=== PATIENT | male | born 1975 | race Caucasian/White ===

== ENCOUNTER 2019-02-17 15:21 | Emergency (ER) | payer OTHER ==
[2019-02-17 15:36] VITALS: BP 121/104
--- NOTE | 2019-02-17 15:42 | UC ---
UC General HPI - HPI Summary HPI Summary: pt punched a wall 2 days ago injuring his R hand. c/o pain and swelling. - History of Current Complaint Chief Complaint: UCUpperExtremity Stated Complaint: RT HAND INJ Time Seen by Provider: 02/17/19 15:31 Hx Obtained From: Patient Timing: Constant Pain Intensity: 7 Aggravating: movement - Allergy/Home Medications Allergies/Adverse Reactions: Allergies Allergy/AdvReac Type Severity Reaction Status Date / Time No Known Allergies Allergy Verified 02/17/19 15:37 Home Medications: Home Medications ARIPiprazole TAB* [Abilify TAB*] 10 mg PO DAILY 02/17/19 [History Confirmed ] Entecavir [Baraclude] 0.5 mg PO DAILY 02/17/19 [History Confirmed 02/17/19] Multivitamin [Multivitamins] 1 each PO DAILY 02/17/19 [History Confirmed ] SUMAtriptan TAB* [Imitrex TAB*] 50 mg PO SEE INSTRUCTIONS 02/17/19 [History Confirmed 02/17/19] cloNIDine TAB* [Catapres 0.1 MG TAB*] 0.1 mg PO TID 02/17/19 [History Confirmed 02/17/19] levETIRAcetam TAB* [Keppra TAB*] 1,000 mg PO DAILY 02/17/19 [History Confirmed 02/17/19] traZODone TAB* [Desyrel TAB*] 50 mg PO BEDTIME 02/17/19 [History Confirmed 02/17] PMH/Surg Hx/FS Hx/Imm Hx - Additional Past Medical History Additional PMH: sleep disturbance, fx R 4th finger Cardiovascular History: Hypertension Neurological History: Seizures - Surgical History Surgical History: None - Family History Known Family History: Positive: Non-Contributory - Social History Alcohol Use: Weekly Substance Use Type: None Smoking Status (MU): Heavy Every Day Tobacco Smoker Review of Systems All Other Systems Reviewed And Are Negative: No Constitutional: Negative: Fever Skin: Negative: Rash Musculoskeletal: Positive: Edema - R hand plus pain Physical Exam Triage Information Reviewed: Yes Appearance: Well-Appearing Vital Signs: Initial Vital Signs Temp 98.1 F 02/17/19 15:32 Pulse 87 02/17/19 15:32 Resp 16 02/17/19 15:32 BP 121/104 02/17/19 15:32 Pulse Ox 99 02/17/19 15:32 Vital Signs Reviewed: Yes Respiratory: Positive: No respiratory distress Cardiovascular: Positive: RRR Musculoskeletal: Positive: Other: - RUE: Shoulder and elbow are non tender. wrist with mild tenderness and swelling over dorsal-ulnar side. snuff box is not tender. Dorsal hand with swelling and tender but not red or warm. fingers have gross s/v function rom limited by hand pain. Neurological: Positive: Alert Psychological: Positive: Age Appropriate Behavior Skin Exam: Normal Diagnostics - Radiology No standard instances Radiology Interpretation Completed By: Radiologist - HAND=IMPRESSION: Fracture through the base of the fourth metacarpal. WRIST=IMPRESSION: Fracture through the base of the fourth metacarpal. Old Avulsion of the scaphoid. Course/Dx - Course Course Of Treatment: PROCEDURE BY THIS PA: VOLAR FIBERGLASS SPLINT APPLIED FROM HAND TO MID-FOREARM AND HELD WITH MAYTE. JOINTS ABOVE AND BELOW FX IMMOBILIZED. FINGERTIPS HAVE FULL S /V FUNCTION PRE AND POST SPLINT. - Diagnoses Provider Diagnosis: Fracture of right hand Discharge - Sign-Out/Discharge Documenting (check all that apply): Patient Departure All imaging exams completed and their final reports reviewed: Yes - Discharge Plan Condition: Stable Disposition: HOME Patient Education Materials: Hand Fracture (ED), Splint Care (ED) Referrals: Eb Pool MD [Medical Doctor] - 2 Days Additional Instructions: CALL TUESDAY(IN 2 DAYS) TO BE SEEN THE SAME DAY. KEEP SPLINT ON AND DRY AT ALL TIMES. - Billing Disposition and Condition Condition: STABLE Disposition: Home - Attestation Statements Provider Attestation: Per institutional requirements, I have reviewed the chart, however, I was not consulted specifically or made aware of this patient by the midlevel provider. I did not personally evaluate, interact with , or disposition this patient.
== END 2019-02-17 16:24 | disposition home or self-care (01) ==
LOC: UCCORT 15:21
DX: S62.314A Displaced fracture of base of fourth metacarpal bone, right hand, initial encounter for closed fracture (principal); W22.09XA Striking against other stationary object, initial encounter; Y92.9 Unspecified place or not applicable; I10 Essential (primary) hypertension; R56.9 Unspecified convulsions; F17.210 Nicotine dependence, cigarettes, uncomplicated
CPT/HCPCS: 26600; 99201; G0463